=== PATIENT | male | born 1955 | race Caucasian/White ===

== ENCOUNTER 2019-09-21 11:49 | Outpatient (RCR) | payer MEDICARE, MEDICAID, SELFPAY | END 2019-09-29 00:01 | LOC: LAB 11:49 | PROVIDERS: Family Provider Family Medicine; Visit Provider Internal Medicine Infectious Disease | DX: M86.8X7 Other osteomyelitis, ankle and foot (principal) | CPT/HCPCS: 80053 ×3; 85007; 85025 ×2; 85027 ==

== ENCOUNTER → 2019-10-08 09:15 | Outpatient (BNVA) | payer MEDICARE, MEDICAID, SELFPAY | PROVIDERS: Family Provider Family Medicine; PCP Family Medicine; Visit Provider Nurse Practitioner | DX: F33.2 Major depressive disorder, recurrent severe without psychotic features (principal); G31.84 Mild cognitive impairment of uncertain or unknown etiology | CPT/HCPCS: 99213 ==

== ENCOUNTER 2019-10-13 15:45 | Outpatient (CLI) | payer MEDICARE, MEDICAID, SELFPAY ==
[2019-10-13 16:21] LABS: Hematocrit 38.2 % (42.0-52.0); Hemoglobin 12.5 g/dL (11.7-16.6); Mean Corpuscular HGB Conc 32.7 g/dL (30.0-36.0); Mean Corpuscular Hemoglobin 34.4 pg (28.0-34.0); Mean Corpuscular Volume 105.2 fL (80-94); Mean Platelet Volume 10.9 fL (7.4-10.4); Platelet Count 189 10^3/cmm (130-400); Red Blood Count 3.63 10^6/uL (4.1-5.3); Red Cell Distribution Width 12.6 % (12.1-15.1); White Blood Count 6.7 10^3/uL (4.0-10.0)
[2019-10-13 16:43] LABS: Alanine Aminotransferase < 5 U/L (0-41); Albumin Level 4.2 g/dL (3.5-5.2); Alkaline Phosphatase 70 IU/L (40-130); Anion Gap 15.6 (5-19); Aspartate Amino Transferase 11 U/L (0-40); Blood Urea Nitrogen 16 mg/dL (8-23); Calcium 9.6 mg/Dl (8.8-10.2); Carbon Dioxide 30 mmol/L (22-29); Chloride 98 mmol/L (98-107); Globulin 2.1 g/dL (1.3-4.6); Glomerular Filtration Rate 55.4 mL/min (90-130); Glucose 101 mg/dL (74-106); Potassium 4.6 mmol/L (3.5-5.1); Sodium 139 mmol/L (136-145); Total Bilirubin 0.2 mg/dL (0.15-1.2); Total Protein 6.3 g/dL (6.6-8.7)
[2019-10-13 22:49] LABS: Absolute Eosinophils 0.1 10^3/cmm (0.0-0.7); Absolute Segmented Neutrophil 4.8 10/cmm (1.6-7.1); Eosinophils 2 %; Lymphocytes 20 %; Monocytes Absolute 0.3 10^3/cmm (0.1-0.6); Platelet Estimate Normal (Normal); Segmented Neutrophils 73 %; Total Cells Counted 100 (0-100)
== END 2019-10-13 15:46 | disposition home or self-care (01) ==
LOC: LAB 15:52
PROVIDERS: Family Provider Family Medicine; PCP Family Medicine; Visit Provider Internal Medicine Infectious Disease
DX: M86.9 Osteomyelitis, unspecified (principal)
CPT/HCPCS: 80053; 85007; 85027

== ENCOUNTER → 2019-12-08 15:53 | Outpatient (BNVA) | payer MEDICARE, MEDICAID, SELFPAY | PROVIDERS: Family Provider Family Medicine; PCP Family Medicine; Visit Provider Podiatrist Foot & Ankle Surgery | DX: M79.671 Pain in right foot (principal); M79.672 Pain in left foot; S93.335A Other dislocation of left foot, initial encounter; S92.242A Displaced fracture of medial cuneiform of left foot, initial encounter for closed fracture; X58.XXXA Exposure to other specified factors, initial encounter; Z89.421 Acquired absence of other right toe(s) | CPT/HCPCS: 73630 ==

== ENCOUNTER 2019-12-18 06:27 | Day surgery (SDC) | payer MEDICARE, MEDICAID, SELFPAY ==
[2019-12-17 13:06] VITALS: BMI 25.0
[2019-12-18 06:50] VITALS: BP 65/38; PULSE 63; RESP 18; TEMP 36.3; O2SAT 97
--- NOTE | 2019-12-18 06:57 | ECG_ITS ---
Measurements Intervals [place] Rate: 59 P: -11 SC: 181 QRS: 22 QRSD: 97 T: 36 QT: 387 QTc: 384 SINUS BRADYCARDIA Compared to ECG 06/26/2019 12:17:49 Sinus rhythm no longer present Incomplete right bundle-branch block no longer present Electronically Signed On 12-18-2019 8:45:52 CDT by Lluvia Florentino [email or web address]
[2019-12-18] MEDS: sodium chloride 0.9% 1,000 ML 30 ML IV (07:02)
[2019-12-18 07:23] LABS: Basophils % 0.5 %; Eosinophils # 0.5 10^3/uL (0.0-0.8); Eosinophils % 7.1 %; Hematocrit 40.1 % (42.0-52.0); Hemoglobin 13.1 g/dL (11.7-16.6); Lymphocytes # 1.9 10^3/uL (0.8-4.8); Lymphocytes % 24.5 %; Mean Corpuscular HGB Conc 32.7 g/dL (30.0-36.0); Mean Corpuscular Hemoglobin 33.7 pg (28.0-34.0); Mean Corpuscular Volume 103.1 fL (80-94); Mean Platelet Volume 11.2 fL (7.4-10.4); Monocytes # 0.7 10^3/uL (0.2-0.9); Monocytes % 9.5 %; Neutrophils # 4.4 10^3/uL (1.8-7.7); Neutrophils % 58.1 %; Nucleated Red Blood Cells % 0 %; Platelet Count 193 10^3/cmm (130-400); Red Blood Count 3.89 10^6/uL (4.1-5.3); Red Cell Distribution Width 12.9 % (12.1-15.1); White Blood Count 7.6 10^3/uL (4.0-10.0)
--- NOTE | 2019-12-18 07:39 | ANES.PREANE2 ---
Pre-Anesthetic Assessment Pre-Anesthetic Assessment: Height/Weight: Height 1.91 m Weight 90.718 kg Temp Pulse Resp BP Pulse Ox 97.3 F L 63 18 65/38 97 12/18/19 06:50 12/18/19 06:50 12/18/19 06:50 12/18/19 06:50 12/18/19 06:50 Preop Diagnosis: Osteomyelitis right fifth toe Proposed Procedure: Operation Date: 12/18/19 08:15 Proposed Procedures p right fifth toe Amputation Toe/s(Right) - Donal Olson DPM Last intake: Intake Last Liquid Date 12/17/19 Last Liquid Time 20:00 Social: Social History: Tobacco Packs per day: 1 Pack years: 40 Comment: quit 2 weeks Exam: Pre-Anes Outpt Exam: alert and oriented x 3 Additional Exam Findings (including area of procedure): date 12/18/[address] [facility] Airway: Submandibular: WNL Cervical ROM: WNL MP: 1 CV/HEM: CV/HEM: HTN Comments: rx'd x15y stress test negative Anesthetic Plan: ASA status: 3 Anesthesia: MAC Meds/Allergies Current Medications: Current Medications Generic Name Dose Route Start Last Admin Trade Name Freq PRN Reason Stop Dose Admin Sodium Chloride 1,000 mls @ 30 ml s/hr 12/18/19 06:45 12/18/19 07:02 Sodium Chloride 0.9% IV 12/19/19 06:44 30 mls/hr .Q24H BETTINA Administration PFSH Anesthesia PFSH: Social History Smoking and tobacco status: former smoker Alcohol intake: former Year of sobriety/quit date alcohol: 2011 Data Anesthesia CBC & Chem 7: 12/18/19 07:11 Other Labs: Laboratory Results - last 48 hr 12/18/19 07:11 WBC 7.6 RBC 3.89 L Hgb 13.1 Hct 40.1 L MCV 103.1 H MCH 33.7 MCHC 32.7 RDW 12.9 Plt Count 193 MPV 11.2 H Neut % (Auto) 58.1 Lymph % (Auto) 24.5 [place] % (Auto) 9.5 Eos % (Auto) 7.1 Baso % (Auto) 0.5 Neut # (Auto) 4.4 Lymph # (Auto) 1.9 [place] # (Auto) 0.7 Eos # (Auto) 0.5 Baso # (Auto) 0.0 Nucleated RBC % (auto) 0 Nucleated RBCs # 0.0 Cardiac Studies: No Data to Display
[2019-12-18 07:47] LABS: Anion Gap 13.2 (5-19); Blood Urea Nitrogen 36 mg/dL (8-23); Calcium 8.9 mg/dL (8.5-10.5); Carbon Dioxide 27 mmol/L (22-29); Chloride 100 mmol/L (98-107); Glomerular Filtration Rate 24.9 mL/min (90-130); Glucose 96 mg/dL (65-115); Osmolality Calculated 275 mOsm/kg (285-295); Potassium 6.2 mmol/L (3.5-5.1); Sodium 134 mmol/L (136-145)
--- NOTE | 2019-12-18 09:31 | SUR.PREOP ---
/ wanted to admit patient to floor for observation for bp and labwork results. Pt refused admission to floor. Pt d/c home per . Patient has an appointment to see PCP on Saturday at 945am.
--- NOTE | 2019-12-18 11:17 | W.PM.OPSUD ---
Surgery/Procedure H&P Update DATE OF PROCEDURE: December 18, 2019 DATE H&P PERFORMED: 12/17/19 H&P UPDATE INFORMATION: I have reviewed H&P completed within last 30 days, I have examined patient prior to procedure and No changes to prior documentation (Met with patient preoperatively he appeared dehydrated and had complaints of dizziness. He was hypotensive, hyperkalemia and elevated creatinine. Recommended admission to the hospital for stabilization and work-up and proceeding with fifth toe surgery once he was stabilized. Patient adamantly refused hospitalization. Multiple attempts at explaining to the patient the importance of being admitted to the hospital, he adamantly refused admission states he wants to go home AGAINST MEDICAL ADVICE. Contacted patient's primary care office, scheduled a follow-up appointment this Saturday at 9:45 AM 12/21/2019 patient states that he will keep his follow-up appointment with primary care.) PREOP DIAGNOSIS: Osteomyelitis right fifth toe PLANNED PROCEDURE: Operation Date: 12/18/19 08:15 Proposed Procedures p right fifth toe Amputation Toe/s(Right) - Donal Olson DPM
--- NOTE | 2019-12-18 11:22 | PM.PN ---
Subjective Subjective: Interval history: Patient seen in preoperative holding, he is accompanied by his sister. Has a full-thickness wound to the right fifth toe with exposed bone. At this time the wound is clinically stable without lisa purulence and no periwound erythema, no proximal lymphangitic streaking. He is scheduled today for outpatient debridement with possible fixation versus right fifth toe amputation secondary to osteomyelitis. Vitals/I&O/Wt Last Vital Signs Temp 97.3 F L 12/18/19 06:50 Pulse 63 12/18/19 06:50 Resp 18 12/18/19 06:50 BP 65/38 12/18/19 06:50 Pulse Ox 97 12/18/19 06:50 12/17/19 12/18/19 12/18/19 22:59 06:59 14:59 Intake Total 400 / 400 Balance 400 / 400 Weight last 48 hrs Weight 200 lb Physical Exam Const: COMMON NORMALS: no apparent distress, oriented x3 and alert HENMT: MOUTH: moist mucous membranes not abnormal Chest: COMMONS NORMALS: inspection of chest normal and palpation of chest normal Resp: COMMON NORMALS: normal respiratory effort, no use of accessory muscles and clear to auscultation bilaterally EFFORT & INSPECTION: Yes able to speak in complete sentences AUSCULTATION: clear to auscultation bilaterally Cardio: COMMON NORMALS: regular rate, regular rhythm, S1 normal heart sound and S2 normal heart sound RATE: regular rate RHYTHM: regular rhythm HEART SOUNDS: S1 normal and S2 normal Extremity: OTHER: Full-thickness wound to the right fifth toe with the head of the proximal phalanx protruding through the wound base, no periwound erythema, no lisa purulence, no warmth, no proximal lymphangitic streaking. Left foot has Lisfranc disruption with gross deformity on the right foot the forefoot, he does have a stable wound at the medial aspect of the left foot this is being managed by wound care. Neuro: COMMON NORMALS: oriented x3 SENSORIUM/ORIENTATION: Yes alert Data : 12/18/19 07:11 12/18/19 07:24 A&P Assessment and plan (1) Non-pressure chronic ulcer of other part of right foot with necrosis of bone: Status: Acute Code(s): L97.514 - Non-pressure chronic ulcer of other part of right foot with necrosis of bone (2) Neuropathy, alcoholic: Status: Acute Code(s): G62.1 - Alcoholic polyneuropathy (3) Toe osteomyelitis, right: Status: Acute Code(s): M86.9 - Osteomyelitis, unspecified (4) Lisfranc's dislocation: Status: Acute Qualifiers: Encounter type: subsequent encounter Laterality: left Qualified Code(s): S93.325D - Dislocation of tarsometatarsal joint of left foot, subsequent encounter Code(s): S93.326A - Dislocation of tarsometatarsal joint of unspecified foot, initial encounter (5) Peripheral vascular disease: Status: Acute Code(s): I73.9 - Peripheral vascular disease, unspecified Patient was seen in preoperative holding, he does endorse dizziness. Patient states that he has not been drinking enough water and does feel dehydrated with a dry mouth. He is hypotensive with a blood pressure of 65/38. Denied any palpitations, chest pain or difficulty breathing. Hyperkalemic with potassium 6.2, elevated creatinine at 2.6. Patient is afebrile. Discussed laboratory and clinical findings with anesthesia. At this time his right fifth toe wound with exposed bone is clinically stable. Surgery was canceled for this morning and patient was recommended for admission to the hospital for work-up and medical maximization for surgery. Surgery would include arthroplasty of right fifth toe with fixation versus amputation of right fifth toe secondary to osteomyelitis. Patient adamantly refused admission to the hospital. I explained to him that this could be detrimental to his health he could develop arrhythmias, renal impairment and further destabilize. He is adamant that he will not be admitted to the hospital and wishes to go home. Once again told him this could become life threatening should he delay care and he continued to refuse. Arrange follow-up with his primary care December 21, 2019 9:45 AM states that he will attend that appointment. Attestations Medical Necessity Statement*: Preoperative evaluation Coding Level of Care Code Acute Inspector Insulation for angelique Fwd Diagnoses Non-pressure chronic ulcer of other part of right foot with necrosis of bone L97.514 Neuropathy, alcoholic G62.1 Toe osteomyelitis, right M86.9 Lisfranc's dislocation S93.325D Encounter type: subsequent encounter Laterality: left Peripheral vascular disease I73.9
== END 2019-12-18 08:40 | disposition home or self-care (01) ==
PROVIDERS: Anesthesiology; Family Provider Family Medicine; PCP Family Medicine; Visit Provider Podiatrist Foot & Ankle Surgery
DX: Z53.8 Procedure and treatment not carried out for other reasons (principal); L97.514 Non-pressure chronic ulcer of other part of right foot with necrosis of bone; G62.1 Alcoholic polyneuropathy; M86.9 Osteomyelitis, unspecified; S93.325D Dislocation of tarsometatarsal joint of left foot, subsequent encounter; X58.XXXA Exposure to other specified factors, initial encounter; I73.9 Peripheral vascular disease, unspecified; F17.210 Nicotine dependence, cigarettes, uncomplicated; I10 Essential (primary) hypertension
CPT/HCPCS: 12345; 80048; 85025; 93005; 93010; J7030

== ENCOUNTER → 2019-12-21 10:18 | Outpatient (BNVA) | payer MEDICARE, MEDICAID, SELFPAY | PROVIDERS: Family Provider Family Medicine; PCP Family Medicine; Visit Provider Family Medicine | DX: E87.5 Hyperkalemia (principal) | CPT/HCPCS: 80048 ==

== ENCOUNTER 2019-12-24 14:21 | Outpatient (RCR) | payer MEDICARE, MEDICAID, SELFPAY | END 2019-12-29 23:59 | disposition home or self-care (01) | LOC: WOUND 14:21 | PROVIDERS: Family Provider Family Medicine; PCP Family Medicine; Visit Provider Nurse Practitioner Family | DX: I96 Gangrene, not elsewhere classified (principal); L97.522 Non-pressure chronic ulcer of other part of left foot with fat layer exposed; L97.512 Non-pressure chronic ulcer of other part of right foot with fat layer exposed | CPT/HCPCS: 11042; 87070; 87077; 87176; 87186; 87205; 99213; G0463 ==

== ENCOUNTER 2020-01-08 11:38 | Outpatient (RCR) | payer MEDICARE, MEDICAID, SELFPAY ==
[2020-01-08 12:28] LABS: Anion Gap 14.5 (5-19); Blood Urea Nitrogen 16 mg/dL (8-23); Calcium 9.7 mg/dL (8.5-10.5); Carbon Dioxide 29 mmol/L (22-29); Chloride 101 mmol/L (98-107); Glucose 70 mg/dL (65-115); Osmolality Calculated 285 mOsm/kg (285-295); Potassium 4.5 mmol/L (3.5-5.1); Sodium 140 mmol/L (136-145)
== END 2020-01-28 23:59 | disposition home or self-care (01) ==
LOC: LAB 11:38
PROVIDERS: Family Provider Family Medicine; PCP Family Medicine; Visit Provider Family Medicine
DX: L97.512 Non-pressure chronic ulcer of other part of right foot with fat layer exposed (principal); L97.422 Non-pressure chronic ulcer of left heel and midfoot with fat layer exposed; F17.210 Nicotine dependence, cigarettes, uncomplicated; I10 Essential (primary) hypertension; G62.9 Polyneuropathy, unspecified; I73.9 Peripheral vascular disease, unspecified
CPT/HCPCS: 11042; 80048

== ENCOUNTER 2020-01-28 09:44 | Outpatient (RCR) | payer MEDICARE, MEDICAID, SELFPAY | END 2020-01-28 23:59 | disposition home or self-care (01) | LOC: WOUND 09:44 | PROVIDERS: Family Provider Family Medicine; PCP Family Medicine; Visit Provider Nurse Practitioner Family | DX: I96 Gangrene, not elsewhere classified (principal); L97.522 Non-pressure chronic ulcer of other part of left foot with fat layer exposed; L97.512 Non-pressure chronic ulcer of other part of right foot with fat layer exposed | CPT/HCPCS: 99213; 99214; 99215; G0463 ==

== ENCOUNTER → 2020-02-01 11:51 | Outpatient (BNVA) | payer MEDICARE, MEDICAID, SELFPAY | PROVIDERS: Family Provider Family Medicine; PCP Family Medicine; Visit Provider Podiatrist Foot & Ankle Surgery | DX: M79.672 Pain in left foot (principal); S92.302A Fracture of unspecified metatarsal bone(s), left foot, initial encounter for closed fracture; X58.XXXA Exposure to other specified factors, initial encounter | CPT/HCPCS: 73630 ==

== ENCOUNTER 2020-02-25 08:27 | Inpatient (IN) | payer MEDICARE, MEDICAID, SELFPAY ==
--- NOTE | 2020-02-23 12:35 | ANES.PREANE2 ---
Pre-Anesthetic Assessment Pre-Anesthetic Assessment: Height/Weight: Height 1.91 m Weight 90.718 kg Preop Diagnosis: left foot chronic Lisfranc fracture dislocation Proposed Procedure: Operation Date: 02/25/20 08:00 Proposed Procedures p Below Knee Amputation 33716 M79.673(Left) - Moi Stevens DO Social: Social History: Alcohol (quit 2011) and Tobacco (quit ) Exam: Pre-Anes Outpt Exam: alert, oriented x 3, clear to auscultation bilaterally and regular rate & rhythm Airway: Submandibular: WNL Cervical ROM: WNL MP: 2 Dentition: False (upper) History/ROS: No significant history except as noted Pulmonary: Pulmonary: None reported CV/HEM: CV/HEM: HTN : : None reported Hepatic: Hepatic: None reported GI: GI: GERD Metabolic: Metabolic: None reported Musc/skel: Musc/skel: OA/DJD Neuropsych: Neuropsych: Anxiety, Depression and Neuropathy Anesthetic Plan: ASA status: 4 Anesthesia: Anesthesia Evaluation and General Risk of > 500 ml blood loss (7ml/kg in children): No PFSH Anesthesia PFSH: Medical History Alcohol abuse, in remission Alcohol dependence, in remission Essential (primary) hypertension GERD (gastroesophageal reflux disease) Major depressive disorder, recurrent severe without psychotic features Mild cognitive impairment, so stated Peripheral vascular disease Surgical History History of foot surgery Family History Other Cancer Social History Smoking and tobacco status: former smoker Alcohol intake: former Year of sobriety/quit date alcohol: 2011 Data Anesthesia Cardiac Studies: No Data to Display
[2020-02-23 12:38] LABS: Basophils % 0.3 %; Eosinophils # 0.8 10^3/uL (0.0-0.8); Eosinophils % 7.2 %; Hematocrit 43.3 % (42.0-52.0); Hemoglobin 14.3 g/dL (11.7-16.6); Lymphocytes # 2.5 10^3/uL (0.8-4.8); Lymphocytes % 22.3 %; Mean Corpuscular Hemoglobin 34.2 pg (28.0-34.0); Mean Corpuscular Volume 103.6 fL (80-94); Mean Platelet Volume 10.9 fL (7.4-10.4); Monocytes # 0.8 10^3/uL (0.2-0.9); Monocytes % 6.9 %; Neutrophils # 7.1 10^3/uL (1.8-7.7); Neutrophils % 62.9 %; Nucleated Red Blood Cells % 0 %; Platelet Count 220 10^3/cmm (130-400); Red Blood Count 4.18 10^6/uL (4.1-5.3); Red Cell Distribution Width 13.3 % (12.1-15.1); White Blood Count 11.2 10^3/uL (4.0-10.0)
[2020-02-23 12:52] LABS: Alanine Aminotransferase 7 U/L (0-41); Albumin Level 4.5 g/dL (3.5-5.2); Alkaline Phosphatase 82 IU/L (40-130); Anion Gap 13.5 (5-19); Aspartate Amino Transferase 13 U/L (0-40); Blood Urea Nitrogen 21 mg/dL (8-23); Calcium 9.8 mg/dL (8.5-10.5); Carbon Dioxide 31 mmol/L (22-29); Chloride 97 mmol/L (98-107); Globulin 2.7 g/dL (1.3-4.6); Glomerular Filtration Rate 60.8 mL/min (90-130); Glucose 103 mg/dL (65-115); Osmolality Calculated 281 mOsm/kg (285-295); Potassium 4.5 mmol/L (3.5-5.1); Sodium 137 mmol/L (136-145); Total Bilirubin 0.2 mg/dL (0.15-1.2); Total Protein 7.2 g/dL (6.6-8.7)
[2020-02-25] VITALS (21 sets, daily range): BP systolic 92–128; BP diastolic 53–85; PULSE 60–81; RESP 14–20; TEMP 36.2–37.1; O2SAT 87–100
--- NOTE | 2020-02-25 08:21 | ECG_ITS ---
Measurements Intervals [place] Rate: 66 P: 41 IA: 180 QRS: 22 QRSD: 98 T: 50 QT: 399 QTc: 418 SINUS RHYTHM POSSIBLE RIGHT VENTRICULAR CONDUCTION DELAY [RSR (QR) IN V1/V2] Compared to ECG 12/18/2019 07:15:35 Sinus bradycardia no longer present Electronically Signed On 02-25-2020 11:50:27 CDT by Patrice Stone M.D. [email or web address]
[2020-02-25] MEDS: sodium chloride 0.9% 1,000 ML 30 ML IV (09:07)
--- NOTE | 2020-02-25 09:25 | W.PM.OPSUD ---
Surgery/Procedure H&P Update DATE OF PROCEDURE: February 25, 2020 DATE H&P PERFORMED: 02/10/20 H&P UPDATE INFORMATION: I have reviewed H&P completed within last 30 days, I have examined patient prior to procedure, No changes to prior documentation and H&P is in [facility] EMR on date indicated PREOP DIAGNOSIS: left foot chronic Lisfranc fracture dislocation PRIMARY INDICATION FOR PROCEDURE: as above. Patient has been offered reconstruction of his chronic Lisfranc fracture dislocation but after hearing the potential risk for persistent pain long episode of being nonweightbearing he elected to consider a below-knee amputation. PLANNED PROCEDURE: Operation Date: 02/25/20 09:55 Proposed Procedures p Below Knee Amputation [id number] M79.673(Left) - Moi Stevens DO
--- NOTE | 2020-02-25 09:28 | PM.OP ---
Operative Report Date of procedure: February 25, 2020 Pre-op Diagnosis: left foot chronic Lisfranc fracture dislocation Post-op diagnosis: same Procedure Done: Left below-knee amputation Pathology: Left leg sent to pathology Surgeon: Moi Stevens Anesthesia: General and Nerve Block (adductor and saphenous nerve blocks pre-op) Estimated blood loss (mL): 5 Tourniquet time (min): 60 (at 300 mm Hg) Complications: No apparent complications Findings: No evidence of infection at level of amutation. Tissue healthy in appearance. Condition: stable Disposition: PACU Brief History: 64 year old white male With chronic Lisfranc fracture dislocation of his left foot. Is been seen by foot and ankle reconstruction surgeon's and was told that he may face of persistent pain despite successful surgery be nonweightbearing for a protracted period of time and because of peripheral vascular disease he could face wound healing complications that could lead to below-knee amputation. Foot and ankle reconstruction experts also said he might be a candidate for below-knee amputation. Of note with the patient orthopedic consultation and discussed the treatment options with him. He was interested in below-knee amputation with fitting for a prosthesis selected get on with his life. Risks of surgery include aren't limited to potential wound healing complications. Possible need for revision of his stump should have any difficulties with healing. Medical risks include aren't limited to infection nerve/blood vessel/tendon injury, blood clots, heart attack, stroke risk up to including . All questions answered patient we will proceed with surgery. Procedure: 1.5 g Zinacef Patient identified. Surgical site signed. Surgical permit signed. Patient received 1.5 g of Zinacef for surgical prophylaxis. Patient is taken the operating room. Patient received nerve blocks by anesthesia for post-operative pain control. Patient is placed supine on the OR table. He was placed under general anesthesia. Tourniquet placed but the upper aspect of the operative left. Operative limb was then sterilely prepped and draped in the usual fashion. Timeout was performed. Patient reveived 1 g of TXA for added hemostasis. Operative limb was exsanguinated with elevation and the tourniquet inflated 300 mmHg pressure. Skin incisions were planned and marked out using a marking pen. Goal was to create a long posterior flap which will be brought anterior. A #10 blade was then used to make full thickness skin cuts. The tibial and fibular shafts were exposed and then cut using oscillating saw. The anterior aspect of the tibia was beveled using the oscillating saw and left smooth. With a second knife we completed our release of the soft tissues and the leg was then passed off of the field. The wound was now irrigated with Betadine-containing saline solution and antibiotic containing saline solution. Neurovascular bundles were identified. Small vessels coagulated with electrocautery. Larger vessels identified and tied off using 0 silk ties. The posterior tibial nerve was identified, tractioned distally and cut with a fresh knife and allowed to retract proximally. Branches of the peroneal nerve were similarly treated. Small areas of bleeding were treated with electrocautery. The posterior flap was debulked of muscle tissue to facilitate closure. The posterior fascial layer was closed to the anterior fascia using interrupted sutures of 0 and 2-0 Monocryl. Subcutaneous layer was closed with interrupted sutures of 2-0 Monocryl. Skin was reapproximated with a combination of nikita and 3-0 nylon. Triple antibiotic ointment was applied to the staple line followed by sterile dressings. Tourniquet was deflated. An Alban wrap was then applied. A knee immobilizer was applied to prevent the development of a flexion contracture. The patient was aroused from anesthesia. The patient was taken recovery room. Patient tolerated procedure well. All counts are correct.
[2020-02-25] MEDS: cefUROXime 1,500 MG in sodium chloride 0.9% (plus) 50 ML 100 MG IV (09:39)
[2020-02-25] MEDS: midazolam 1 mg/mL INJ 5 ML 5 MG IVP (09:40)
[2020-02-25] MEDS: fentaNYL 50 mcg/mL INJ 2mL 100 MCG IVP (09:41)
--- NOTE | 2020-02-25 10:14 | P.ANES_ITS ---
Anesthesia Procedures Procedure/Date: 02/25/20 Nerve Block ^: Nerve Block 1: Main Anesthesia: general anesthesia Time Out Performed: Yes Consent: requested by attending/covering physician, risks and benefits reviewed and patient agrees to proceed Nerve block location: adductor canal (left) and popliteal (left) Anesthesia monitors applied: pulse oximetry, EKG, BP cuff and oxygen Nerve block position: supine (for the AC then RLD for Pop) Anesthetic Used: ropivicaine 0.5% (20 ml for each blk total 40ml) and with d ecadron (8mg) Amount of anesthesia used (mL): 40 Ultrasound used to: recognize landmarks Nerve Stimulator Used?: Yes Interscalene/Femoral BLK: 4 stimuplex 21 g needle used for position and inplane approach, visualize local anesthetic spread and no vascular puncture identified Injection: neg aspiration of heme Patient Tolerated Procedure: well and no complications Complications: none
[2020-02-25] MEDS: neomycin-poly-bacitracin oint 28 gm 1 APPLIC TOPICAL (10:45)
[2020-02-25] MEDS: HYDROmorphone 1 mg/mL INJ 1 mL IVP ×2 (12:10→15:29)
[2020-02-25] MEDS: oxyCODONE 5 mg IR Tab/Cap PO ×2 (12:25→21:29)
[2020-02-25] MEDS: ketorolac 30 mg/mL INJ 15 MG IVP (12:46)
[2020-02-25] MEDS: acetaminophen 500 mg Tablet 1000 MG PO ×2 (12:46→21:28)
--- NOTE | 2020-02-25 12:52 | SUR.PHASEII ---
brought pt's black bag with belongings to room 269 and nurse at bedside
[2020-02-25] MEDS: calcium carb-vit d 600mg/400unit 1 Tablet 1 EACH PO (18:44)
[2020-02-25] MEDS: gabapentin 300 mg Capsule 600 MG PO (18:44)
[2020-02-25] MEDS: sennosides-docusate Tablet 2 TAB PO (18:44)
[2020-02-25] MEDS: metoprolol tartrate 50 mg Tablet PO (18:45)
[2020-02-25] MEDS: iron polysaccharide complex 150 mg Capsule PO (18:45)
[2020-02-25] MEDS: venlafaxine ER (24HR) 75 mg Capsule 225 MG PO (21:28)
[2020-02-26] VITALS (13 sets, daily range): BP systolic 101–130; BP diastolic 60–79; PULSE 58–70; RESP 16–20; TEMP 36.7–36.8; O2SAT 93–97
[2020-02-26] MEDS: sodium chloride 0.9% 1,000 ML 80 ML IV ×2 (01:32→15:22)
[2020-02-26] MEDS: enoxaparin 40 mg/0.4 mL Syringe SUBCUT ×2 (01:33→23:49)
[2020-02-26] MEDS: oxyCODONE 5 mg IR Tab/Cap PO ×6 (01:33→23:48)
--- NOTE | 2020-02-26 05:32 | PM.PN ---
Subjective Subjective: Interval history: 64-year-old white male postoperative day 1 status post left below-knee amputation to treat chronic fracture dislocation of left mid foot with deformity and previous history of infection. Prior to surgery patient was reluctant to be admitted to the hospital for postoperative pain control on at least an observation basis. After discussing his support network at home with his family. He is more agreeable to be admitted with discharge to either a assisted facility or inpatient rehabilitation to work on transfer training following his left below-knee amputation. Patient's status was changed yesterday we made it clear that he wanted be admitted longer than observation stay. Consult to case management to work the issue for transfer to a suitable facility when the patient is stable medically and meets criteria for discharge to a skilled facility. Vitals/I&O/Wt Last Vital Signs Temp 98.1 F 02/26/20 04:00 Pulse 61 02/26/20 04:00 Resp 16 02/26/20 04:00 BP 113/71 02/26/20 04:00 Pulse Ox 96 02/26/20 04:00 02/25/20 02/25/20 02/26/20 14:59 22:59 06:59 Intake Total 1260 / 1260 770 / 2029 575 / 2605 Output Total 5 / 5 0 / 5 500 / 505 Balance 1255 / 1255 770 / 2025 75 / 2100 Physical Exam Narrative: EXAM NARRATIVE: 64-year-old white male no acute distress. He is alert and cooperative. His left knee immobilizer is in place. His dressing is clean dry and intact. He has an SCD on the contralateral nonoperative limb and no calf tenderness. Data : 02/26/20 05:40 02/26/20 05:40 A&P Assessment and plan (1) History of left below knee amputation: Postoperative day 1 Antibiotic prophylaxis with cefuroxime VTE prophylaxis with SCD right lower extremity, mobilization and Lovenox product manager financial services for discharge planning to skilled facility at time of discharge Physical therapy and occupational therapy consults ordered Pain control Status: Acute Attestations Medical Necessity Statement*: patient requires continued inpatient level care following left below-knee amputation. Patient requires transfer to skilled facility at time of discharge for safety reasons and to work on ability to transfer. Patient has no significant support network that can help him at home. Home health initially does not look to be sufficient to provide him care postoperatively as he will be at risk for falling. Pain well controlled this am. Time Spent in Patient Care: less than 15 minutes (>than 50% of time spent in counselling and/or direct pt care on unit). Coding Level of Care Code Acute Supervisor Vendor Quality for [facility] Diagnoses History of left below knee amputation Z89.512
[2020-02-26] MEDS: acetaminophen 500 mg Tablet 1000 MG PO ×3 (05:34→20:07)
[2020-02-26 06:32] LABS: Basophils % 0.2 %; Eosinophils % 0.2 %; Hematocrit 39.9 % (42.0-52.0); Hemoglobin 12.8 g/dL (11.7-16.6); Lymphocytes # 1.2 10^3/uL (0.8-4.8); Lymphocytes % 6.7 %; Mean Corpuscular HGB Conc 32.1 g/dL (30.0-36.0); Mean Corpuscular Hemoglobin 33.3 pg (28.0-34.0); Mean Corpuscular Volume 103.9 fL (80-94); Monocytes # 1.1 10^3/uL (0.2-0.9); Monocytes % 6.3 %; Neutrophils # 15.7 10^3/uL (1.8-7.7); Neutrophils % 86.1 %; Nucleated Red Blood Cells % 0 %; Platelet Count 187 10^3/cmm (130-400); Red Blood Count 3.84 10^6/uL (4.1-5.3); Red Cell Distribution Width 13.2 % (12.1-15.1); White Blood Count 18.2 10^3/uL (4.0-10.0)
[2020-02-26 06:42] LABS: Anion Gap 14.6 (5-19); Blood Urea Nitrogen 18 mg/dL (8-23); Calcium 8.6 mg/dL (8.5-10.5); Carbon Dioxide 24 mmol/L (22-29); Chloride 102 mmol/L (98-107); Glucose 118 mg/dL (65-115); Osmolality Calculated 280 mOsm/kg (285-295); Potassium 4.6 mmol/L (3.5-5.1); Sodium 136 mmol/L (136-145)
[2020-02-26] MEDS: fluticasone nasal spray 16gm Btl 2 SPRAY INTRANASAL (08:58)
[2020-02-26] MEDS: gabapentin 300 mg Capsule 600 MG PO ×2 (08:59→17:32)
[2020-02-26] MEDS: amlodipine 10 mg Tablet PO (08:59)
[2020-02-26] MEDS: iron polysaccharide complex 150 mg Capsule PO ×2 (08:59→17:32)
[2020-02-26] MEDS: multivitamin therapeutic Tablet 1 TAB PO (08:59)
[2020-02-26] MEDS: calcium carb-vit d 600mg/400unit 1 Tablet 1 EACH PO ×2 (08:59→17:32)
[2020-02-26] MEDS: metoprolol tartrate 50 mg Tablet PO ×2 (09:00→17:32)
[2020-02-26] MEDS: lisinopril 10 mg Tablet PO (09:00)
[2020-02-26] MEDS: sennosides-docusate Tablet 2 TAB PO ×2 (09:00→17:32)
--- NOTE | 2020-02-26 10:29 | PC.CHAP ---
Pastoral Care Encounter/Spiritual Assessment Type of Contact [] Declined lab analyst visit [] Patient/Family/Request visit [] Outpatient visit [] Follow-up visit [] Physician referral [] Code/Alert [x] Routine visit [] Staff referral [] Actively dying [] Patient sleeping [] Family support [] [] Out of room [] Palliative care [] [] Receiving care in room [] Pre-surgical visit [] Trauma [] Long length of stay [] ICU visit [] Other: Relational/Emotional Strength [] Patient feels connected with others/family/visitors/staff [] Distress [] Loneliness/isolation [] Abandonment Spirituality of Patient [] Person of Mulu [] Attends Samaritan of their Mulu [] Believes in Prayer [] Reads Bible or Jewish materials [] There are Spiritual issues to be addressed Budget Examiner Interventions [x] Prayer [] Active listening [] Non-anxious presence [] Spiritual/emotional support [] Crisis/trauma care [] Spiritual counseling [] Bereavement support [] Provided bereavement packet [] Provided Bible/devotional materials [] Provided toy/stuffed animal, coloring book to patient or family member [] Provided Communion [] Anointing/[place] [] Salvation [x] Completed spiritual assessment [] Other: Impact on Illness or Injury [] Angry [] Fearful [] Anxious [] Often cries [] Exhaustion [] Unable to work [] Unable to attend sikhism [] Unable to walk/stand [] Unable to read [] Unable to drive [] Unable to eat/drink [] Unable to sleep [] Unable to be with family [] Patient intubated [] Other: Summary Budget Examiner had to apologize- not noted that patient had leg removed. Patient experiencing pain, and there is no clarity as to cause of loss of limb Time spent with patient 10 min
[2020-02-26] MEDS: HYDROmorphone 1 mg/mL INJ 1 mL IVP ×2 (11:26→20:08)
[2020-02-26] MEDS: ketorolac 30 mg/mL INJ 15 MG IVP (13:31)
[2020-02-26] MEDS: venlafaxine ER (24HR) 75 mg Capsule 225 MG PO (20:08)
[2020-02-27] VITALS (14 sets, daily range): BP systolic 118–131; BP diastolic 67–76; PULSE 61–70; RESP 14–18; TEMP 36.6–37.2; O2SAT 92–96
[2020-02-27] MEDS: HYDROmorphone 1 mg/mL INJ 1 mL IVP ×3 (02:52→23:29)
[2020-02-27] MEDS: ketorolac 30 mg/mL INJ 15 MG IVP ×3 (02:52→20:40)
[2020-02-27] MEDS: oxyCODONE 5 mg IR Tab/Cap PO ×5 (05:08→21:19)
[2020-02-27] MEDS: sodium chloride 0.9% 1,000 ML 80 ML IV (05:09)
[2020-02-27] MEDS: acetaminophen 500 mg Tablet 1000 MG PO ×3 (05:09→20:40)
[2020-02-27] MEDS: fluticasone nasal spray 16gm Btl 2 SPRAY INTRANASAL (05:16)
[2020-02-27] MEDS: sennosides-docusate Tablet 2 TAB PO ×2 (07:28→17:08)
[2020-02-27] MEDS: multivitamin therapeutic Tablet 1 TAB PO (07:29)
[2020-02-27] MEDS: iron polysaccharide complex 150 mg Capsule PO ×2 (07:29→17:08)
[2020-02-27] MEDS: amlodipine 10 mg Tablet PO (07:29)
[2020-02-27] MEDS: gabapentin 300 mg Capsule 600 MG PO ×2 (07:29→17:08)
[2020-02-27] MEDS: lisinopril 10 mg Tablet PO (07:29)
[2020-02-27] MEDS: calcium carb-vit d 600mg/400unit 1 Tablet 1 EACH PO ×2 (07:29→17:08)
[2020-02-27] MEDS: metoprolol tartrate 50 mg Tablet PO ×2 (07:29→17:08)
--- NOTE | 2020-02-27 09:05 | PM.PN ---
Subjective Subjective: Interval history: 64-year-old white male postoperative day 2 status post left below-knee amputation for chronic left foot Lisfranc fracture dislocation with chronic plantar ulcer and underlying osteomyelitis. Pain being controlled with oral medications Vitals/I&O/Wt Last Vital Signs Temp 98.0 F 02/27/20 07:23 Pulse 62 02/27/20 07:23 Resp 18 02/27/20 07:23 BP 124/74 02/27/20 07:23 Pulse Ox 95 02/27/20 07:23 02/26/20 02/27/20 02/27/20 22:59 06:59 14:59 Intake Total 720 / 1960 1480 / 3440 360 / 360 Output Total 150 / 750 400 / 1150 350 / 350 Balance 570 / 1210 1080 / 2290 Physical Exam Narrative: EXAM NARRATIVE: 64-year-old white male in no distress. Vital signs stable, afebrile. He is alert and cooperative. Lungs are clear to auscultation. heart is regular rate rhythm. Abdomen is nontender. SCD on the contralateral leg. Contralateral leg calf is nontender. Dressing changed on the left lower extremity. Incision is intact. No evidence of active bleeding. Data : 02/26/20 05:40 02/26/20 05:40 A&P Assessment and plan (1) History of left below knee amputation: discharge planning in process to inpatient rehabilitation versus snf facility social security benefits interviewer consultation in place. Continue mobilization and therapy with both OT and physical therapy while here in the hospital Pain control. encourage transition to oral pain medication in anticipation of discharge VTE prophylaxis with Lovenox and SCDs patient follow-up in the office roughly 2 weeks' time from date of surgery for staple removal application of Steri-Strips and follow-up 2 weeks later for suture removal Status: Acute Attestations Medical Necessity Statement*: patient requires continued inpatient level care planning occurs for discharge to skilled facility Coding Level of Care Code Acute Latex Fashions Designer for [facility] Diagnoses History of left below knee amputation Z89.512
--- NOTE | 2020-02-27 18:06 | NUR.SHIFT ---
SHIFT SUMMARY PATIENT DID WELL WITH PT AND OT TODAY. PAIN STILL NOT CONTROLLED WITH JUST ORAL PAIN MEDICATION, BUT GETTING BETTER. PATIENT HAS ONLY REQUIRED ONE DOSE OF TORADOL AND ONE DOSE OF DILAUDID BETWEEN THE OXY. DRESSING IS STILL C/D/I. GOOD URINE OUTPUT. NO COMPLAINTS AT THIS TIME.
[2020-02-27] MEDS: venlafaxine ER (24HR) 75 mg Capsule 225 MG PO (20:40)
[2020-02-28] VITALS (9 sets, daily range): BP systolic 128–143; BP diastolic 69–76; PULSE 73–86; RESP 16–19; TEMP 36.7–37; O2SAT 91–98
[2020-02-28] MEDS: oxyCODONE 5 mg IR Tab/Cap PO ×4 (00:57→13:17)
[2020-02-28] MEDS: enoxaparin 40 mg/0.4 mL Syringe SUBCUT (01:01)
[2020-02-28] MEDS: acetaminophen 500 mg Tablet 1000 MG PO ×2 (05:30→13:17)
[2020-02-28 05:55] LABS: Basophils % 0.4 %; Eosinophils # 0.5 10^3/uL (0.0-0.8); Eosinophils % 4.8 %; Hematocrit 35.6 % (42.0-52.0); Hemoglobin 11.7 g/dL (11.7-16.6); Lymphocytes # 1.8 10^3/uL (0.8-4.8); Lymphocytes % 17.6 %; Mean Corpuscular HGB Conc 32.9 g/dL (30.0-36.0); Mean Corpuscular Hemoglobin 33.4 pg (28.0-34.0); Mean Corpuscular Volume 101.7 fL (80-94); Mean Platelet Volume 11.3 fL (7.4-10.4); Monocytes # 0.8 10^3/uL (0.2-0.9); Neutrophils % 68.9 %; Nucleated Red Blood Cells % 0 %; Platelet Count 173 10^3/cmm (130-400); Red Cell Distribution Width 13.6 % (12.1-15.1); White Blood Count 10.2 10^3/uL (4.0-10.0)
[2020-02-28] MEDS: iron polysaccharide complex 150 mg Capsule PO (08:00)
[2020-02-28] MEDS: amlodipine 10 mg Tablet PO (08:00)
[2020-02-28] MEDS: gabapentin 300 mg Capsule 600 MG PO (08:00)
[2020-02-28] MEDS: multivitamin therapeutic Tablet 1 TAB PO (08:00)
[2020-02-28] MEDS: fluticasone nasal spray 16gm Btl 2 SPRAY INTRANASAL (08:00)
[2020-02-28] MEDS: lisinopril 10 mg Tablet PO (08:00)
[2020-02-28] MEDS: sennosides-docusate Tablet 2 TAB PO (08:00)
[2020-02-28] MEDS: calcium carb-vit d 600mg/400unit 1 Tablet 1 EACH PO (08:00)
[2020-02-28] MEDS: metoprolol tartrate 50 mg Tablet PO (08:00)
[2020-02-28] MEDS: ketorolac 30 mg/mL INJ 15 MG IVP (08:01)
--- NOTE | 2020-02-28 10:00 | PM.DCS ---
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 The patient sought potential evaluation for reconstruction by foot and ankle providers. There is no guarantee that he be pain free of any might still require amputation. He was seen by me in consultation for him amputation. He was agreeable to proceed with amputation. He was admitted the following surgery on 02/25/2020. He underwent left below-knee amputation under general anesthetic. There no intraoperative or immediate postoperative complications. He tolerated surgery well. Following surgery we worked with physical therapy to work on gait and transfer training. 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 It was not felt that he would be safe to go home. For this reason arrangements were made to transfer the patient to a assisted facility for safety. This also is important as the patient had no significant support network at home. Time of discharge the patient's incision was intact there is evidence of infection. There is no active drainage. Pain was controlled with oral pain medication. He was afebrile. Discharge Summary: patient discharged to skilled facility on 02/28/2020 See discharge medications and discharge instructions below Physical Exam Narrative: EXAM NARRATIVE: 64-year-old white male not distress. He is alert and cooperative. Lungs are clear to auscultation heart is regular rate rhythm abdomen soft and nontender. His incision is intact with no drainage at the left below-knee amputation site. Skin is closed in a combination of nikita and sutures. Discharge Data Data Completed and Pending: Completed Studies During Hospitalization Category Date Time Status Pathology: Surgic al [PTH] Routine Pth 02/25/20 10:23 Completed Vitals: Last Vital Signs Temp 98.0 F 02/28/20 12:00 Pulse 73 02/28/20 12:00 Resp 16 02/28/20 14:25 BP 136/74 02/28/20 12:00 Pulse Ox 98 02/28/20 12:00 Discharge Plan Discharge Patient Disposition: Xfer SNF Condition: Stable Prescriptions: New oxycodone-acetaminophen 10-325 mg tablet 1 tab PO Q4H PRN (Reason: pain) Qty: 60 RF: 0 Continued gabapentin 300 mg capsule 600 mg PO BID Qty: 60 RF: 2 venlafaxine [Effexor XR] 75 mg capsule,extended release 24hr 225 mg PO .AT BED Qty: 90 RF: 2 zolpidem [Ambien] 10 mg tablet 10 mg PO .HS Qty: 30 RF: 2 fluticasone propionate [Flonase Allergy Relief] 50 mcg/actuation spray,suspension 2 spray INTRANASAL DAILY Qty: 16 RF: 1 metoprolol tartrate 50 mg tablet 50 mg PO BID RF: 0 amlodipine 10 mg tablet 10 mg PO DAILY Qty: 30 RF: 0 lisinopril 10 mg tablet 10 mg PO DAILY Qty: 30 RF: 0 Discontinued amoxicillin-pot clavulanate [Augmentin] 875-125 mg tablet 1 tab PO BID Qty: 14 RF: 0 oxycodone-acetaminophen [Percocet] 7.5-325 mg tablet 1 tab PO Q6H PRN (Reason: pain) 7 Days Qty: 28 RF: 0 No Action (DME) Crutches See Rx Instructions .Route .MEDSUPPLY Qty: 1 RF: 0 (DME) Wheel Chair See Rx Instructions .Route .MEDSUPPLY Qty: 1 RF: 0 Discharge Orders: Discharge Order (Routine); Ordered 02/28/20 Ordered By: Moi Stevens Referrals: [facility] [Outside] Moi Stevens DO [Physician] - 03/10/20 9:30 am Discharge Diet: Regular Discharge Activity: Increase activity as tolerated, Use walker/crutches as instructed and As per PT/OT instructions Patient Instructions: Oxycodone/Acetaminophen (By mouth), Enoxaparin (Injection), Below the Knee Amputation (DC) Activity Restrictions/Additional Instructions: Nonweightbearing left BKA stump site Patient to wear knee immobilizer left lower extremity 23 out of 24 hours a day. Patient may come out of knee immobilizer for dressing changes to be performed every other day and for physical therapy for active passive range of motion to prevent knee stiffness. Patient may do upper body ergometry and and upper body strengthening exercises exercises Sponge bathe only Out of bed to chair and bathroom privileges weightbearing as tolerated on his right foot. Dressing changes as follows Removal dressing Clean incision line with sterile saline apply triple antibiotic ointment, Telfa, 4 x 4's ABDs if needed otherwise Kerlex and fishnet elastic stocking. Discharge Date/Time: 02/28/20 14:26 Discharge Attestations Time Spent in Discharge Care*: less than 30 min Specific Discharge Activities: Specific discharge activities: discussing with patient case coordinator/social workers/dc planners and documenting/other paperwork Quality Metrics Clinical Quality Measures During this hospital stay, did patient experience: None Coding Level of Care Code Acute Cafeteria Aide for [facility] Diagnoses History of left below knee amputation Z89.512
--- NOTE | 2020-02-28 11:46 | DCPLANNER ---
Pg 2 of IM updated and reviewed with pt. No questions, copy provided.
== END 2020-02-28 14:26 | disposition skilled nursing facility (03) | DRG 475 ==
PROVIDERS: Admitting Provider Orthopaedic Surgery; PCP Family Medicine; Visit Provider Orthopaedic Surgery
PROC: 0Y6J0Z3 Detachment at Left Lower Leg, Low, Open Approach (ICD-10-PCS; CPT 27880; principal; 2020-02-25 09:55)
DX: S92.812A Other fracture of left foot, initial encounter for closed fracture (principal); F33.2 Major depressive disorder, recurrent severe without psychotic features; M86.8X6 Other osteomyelitis, lower leg; I10 Essential (primary) hypertension; X58.XXXA Exposure to other specified factors, initial encounter
CPT/HCPCS: 12345; 36415; 80048; 80053; 85025; 86850; 86900; 88307; 93005; 96372; 96374; 96375; 97110; 97116; 97161; 97165; 97530; 97535; 97760; J0131; J0330; J0697; J1100; J1170; J1580; J1650; J1885; J2001; J2250; J2405; J2704; J2795; J3010; J3490; J7030

== ENCOUNTER → 2020-03-21 11:34 | Outpatient (BNVA) | payer MEDICARE, MEDICAID, SELFPAY | PROVIDERS: PCP Family Medicine; Visit Provider Family Medicine | DX: S91.209A Unspecified open wound of unspecified toe(s) with damage to nail, initial encounter (principal); X58.XXXA Exposure to other specified factors, initial encounter | CPT/HCPCS: 84450; 87070 ==

== ENCOUNTER → 2020-04-15 07:53 | Outpatient (BNVA) | payer MEDICARE, MEDICAID, SELFPAY | PROVIDERS: PCP Family Medicine; Visit Provider Nurse Practitioner | DX: F33.2 Major depressive disorder, recurrent severe without psychotic features (principal); G31.84 Mild cognitive impairment of uncertain or unknown etiology | CPT/HCPCS: 99213 ==

== ENCOUNTER → 2020-06-20 11:38 | Outpatient (BNVA) | payer MEDICARE, MEDICAID, SELFPAY | PROVIDERS: PCP Family Medicine; Visit Provider Family Medicine | DX: Z13.6 Encounter for screening for cardiovascular disorders (principal); I10 Essential (primary) hypertension | CPT/HCPCS: 80053 ==

== ENCOUNTER → 2020-09-05 07:44 | Outpatient (BNVA) | payer MEDICARE, MEDICAID, SELFPAY | PROVIDERS: PCP Family Medicine; Visit Provider Nurse Practitioner | DX: F33.2 Major depressive disorder, recurrent severe without psychotic features (principal); G31.84 Mild cognitive impairment of uncertain or unknown etiology | CPT/HCPCS: 99213 ==

== ENCOUNTER 2020-10-17 14:26 | Emergency (ER) | payer MEDICARE, MEDICAID, SELFPAY ==
[2020-10-17 14:33] VITALS: BP 154/84; PULSE 76; RESP 18; TEMP 36.1; O2SAT 98; BMI 23.7
[2020-10-17 16:02] VITALS: BP 134/82; PULSE 66; RESP 14; O2SAT 98
--- NOTE | 2020-10-17 16:12 | ED_ITS ---
HPI - General Adult General: Chief complaint: Dental/Oral Stated complaint: poss infection, sores in mouth and rash on face Time Seen by Provider: 10/17/20 15:57 History of Present Illness: HPI narrative: Patient presents with sores on his face is very painful. Was seen by Dentist other day and medicine was called in for infection and he was told that he possibly had a sinus infection. Patient been sore for a few days and now is broke out the rash on the right side of his face extending to the ear and up and does have some drainage from those areas now. MD complaint: Painful rash to the face times a few days Onset (ago): day(s) Location: face Severity scale (1-10): 5 Quality: burning and aching Pain Consistency: constant Relieving factors: none Exacerbating factors: none Associated symptoms: Reports no associated symptoms and rash (Painful to the face right side only); Deny chest pain, dyspnea, headache(s), nausea or vomiting Treatments prior to arrival: other (Antibiotics) Review of Systems Const: Denies: fever(s), chills or body aches Eyes: Denies: change in vision or blurry vision ENMT: Denies: throat pain or nasal congestion Card: Denies: chest pain or dyspnea on exertion Resp: Denies: dyspnea, productive cough or non-productive cough GI: Denies: abdominal pain, nausea or vomiting : Denies: difficulty urinating Musc: Denies: extremity pain Skin/Breast: Reports: rash (Painful to the face right side only) Neuro: Denies: headache(s) Psych: Denies: anxiety or depression Dio/Lymph: Denies: easy bruising PFS ED PFSH: Medical History (Updated 10/17/20 @ 16:10 by MARY Lamar) Alcohol abuse, in remission Alcohol dependence, in remission Essential (primary) hypertension GERD (gastroesophageal reflux disease) History of left below knee amputation Major depressive disorder, recurrent severe without psychotic features Mild cognitive impairment, so stated Peripheral vascular disease Surgical History History of foot surgery Family History Other Cancer Social History Smoking and tobacco status: former smoker Alcohol intake: former Year of sobriety/quit date alcohol: 2011 Physical Exam Const: COMMON NORMALS: no acute distress, average body habitus and patient oriented x3 HENMT: COMMON NORMALS: normocephalic HEAD & SCALP: normal to inspection and normocephalic FACE & SINUS: normal facial exam Eye: COMMON NORMALS: conjunctivae normal GENERAL EYE: appearance normal, both eyes and all related structures CONJUNCTIVA: Yes conjunctivae normal Neck/C-Spine: COMMON NORMALS: no JVD Chest: COMMONS NORMALS: normal inspection of the chest Resp: COMMON NORMALS: normal respiratory effort Cardio: COMMON NORMALS: no JVD GI: COMMON NORMALS: Normal to inspection, nondistended, normoactive bowel sounds present Extremity: COMMON NORMALS: normal to inspection and full ROM Neuro: COMMON NORMALS: patient oriented x3 Skin: OTHER: Scattered vesicular clusters with yellow weeping from on the right side of face consistent with a shingles outbreak. Has pain to the right ear but no vesicles noted there Course Vital Signs: Vital signs: Vital Signs Temperature 96.9 F L 10/17/20 14:33 Pulse Rate 66 10/17/20 16:02 Respiratory Rate 14 10/17/20 16:02 Blood Pressure 134/82 10/17/20 16:02 Pulse Oximetry 98 10/17/20 16:02 Discharge Plan Discharge Patient Disposition: Home Clinical Impression: Shingles Qualifiers: Herpes zoster complications: disseminated zoster Qualified Code(s): B02.7 - Disseminated zoster Condition: Stable Prescriptions: New acyclovir 800 mg tablet 800 mg PO 5XD Qty: 35 RF: 0 No Action hydrochlorothiazide 25 mg tablet 25 mg PO QAM RF: 0 lisinopril 5 mg tablet 5 mg PO DAILY Qty: 30 RF: 0 gabapentin 300 mg capsule 600 mg PO BID Qty: 120 RF: 2 zolpidem [Ambien] 10 mg tablet 10 mg PO .HS Qty: 30 RF: 2 venlafaxine [Effexor XR] 75 mg capsule,extended release 24hr 225 mg PO .AT BED Qty: 90 RF: 2 (DME) Stump Labourers See Rx Instructions .Route .MEDSUPPLY Qty: 1 RF: 0 amoxicillin 500 mg capsule 500 mg PO TID 7 Days Qty: 21 RF: 0 fluticasone propionate [Flonase Allergy Relief] 50 mcg/actuation spray ,suspension 2 spray INTRANASAL DAILY Qty: 16 RF: 0 (DME) Wheel Chair See Rx Instructions .Route .MEDSUPPLY Qty: 1 RF: 0 metoprolol tartrate 50 mg tablet 50 mg PO BID Qty: 60 RF: 1 oxycodone-acetaminophen 10-325 mg tablet 1 tab PO Q6H PRN (Reason: pain) 7 Days Qty: 28 RF: 0 amlodipine 10 mg tablet 10 mg PO DAILY Qty: 14 RF: 0 Discharge Orders: Discharge ED (Routine); Ordered 10/17/20 Ordered By: Sharif Orozco Referrals: Maryellen Tony DO [Primary Care Provider] - Discharge Diet: Usual diet Discharge Activity: Increase activity as tolerated Patient Instructions: Herpes Zoster (ED) Activity Restrictions/Additional Instructions: Follow-up with medical provider as directed. Take medications as prescribed. Return to the ER or your medical provider if condition worsens. Please read and understand discharge instructions. If any questions ask please. Coding Level of Care Code ED Geological E Logger for [facility]
== END 2020-10-17 16:12 | disposition home or self-care (01) ==
PROVIDERS: Emergency Provider Nurse Practitioner Family; PCP Family Medicine
DX: B02.7 Disseminated zoster (principal); I10 Essential (primary) hypertension; Z89.512 Acquired absence of left leg below knee; Z87.891 Personal history of nicotine dependence
CPT/HCPCS: 12345; 99281

== ENCOUNTER → 2020-12-09 11:26 | Outpatient (BNVA) | payer MEDICARE, MEDICAID, SELFPAY | PROVIDERS: PCP Family Medicine; Visit Provider Family Medicine | DX: I10 Essential (primary) hypertension (principal); H60.91 Unspecified otitis externa, right ear; Z89.512 Acquired absence of left leg below knee | CPT/HCPCS: 80053; 80061; 82043; 85025 ==

== ENCOUNTER 2020-12-20 14:41 | Outpatient (RCR) | payer MEDICARE, MEDICAID, SELFPAY | END 2020-12-28 23:59 | disposition home or self-care (01) | LOC: SPT 14:41 | PROVIDERS: PCP Family Medicine; Referring Provider Family Medicine; Visit Provider Family Medicine | DX: F33.2 Major depressive disorder, recurrent severe without psychotic features (principal); G31.84 Mild cognitive impairment of uncertain or unknown etiology | CPT/HCPCS: 97110; 97161; 99214 ==

== ENCOUNTER 2020-12-29 06:00 | Outpatient (RCR) | payer MEDICARE, MEDICAID, SELFPAY | END 2021-01-27 23:59 | disposition home or self-care (01) | LOC: SPT 06:00 | PROVIDERS: PCP Family Medicine; Referring Provider Family Medicine; Visit Provider Family Medicine | DX: F33.2 Major depressive disorder, recurrent severe without psychotic features (principal); G31.84 Mild cognitive impairment of uncertain or unknown etiology; Z89.512 Acquired absence of left leg below knee | CPT/HCPCS: 97110; 97116 ==

== ENCOUNTER 2021-01-28 06:00 | Outpatient (RCR) | payer MEDICARE, MEDICAID, SELFPAY | END 2021-02-27 23:59 | disposition home or self-care (01) | LOC: SPT 06:00 | PROVIDERS: PCP Family Medicine; Referring Provider Family Medicine; Visit Provider Family Medicine | DX: F33.2 Major depressive disorder, recurrent severe without psychotic features (principal); G31.84 Mild cognitive impairment of uncertain or unknown etiology; Z89.512 Acquired absence of left leg below knee | CPT/HCPCS: 97110 ==

== ENCOUNTER → 2021-03-17 07:29 | Outpatient (BNVA) | payer MEDICARE, MEDICAID, SELFPAY | PROVIDERS: PCP Family Medicine; Visit Provider Nurse Practitioner | DX: F33.2 Major depressive disorder, recurrent severe without psychotic features (principal); G31.84 Mild cognitive impairment of uncertain or unknown etiology | CPT/HCPCS: 99214 ==

== ENCOUNTER → 2021-03-21 11:54 | Outpatient (BNVA) | payer MEDICARE, MEDICAID, SELFPAY | PROVIDERS: PCP Family Medicine; Visit Provider Family Medicine | DX: E78.5 Hyperlipidemia, unspecified (principal); Z89.512 Acquired absence of left leg below knee | CPT/HCPCS: 80053; 80061 ==

== ENCOUNTER 2021-04-05 06:00 | Outpatient (RCR) | payer MEDICARE, MEDICAID, SELFPAY | END 2021-04-29 23:59 | disposition home or self-care (01) | LOC: SPT 06:00 | PROVIDERS: PCP Family Medicine; Referring Provider Family Medicine; Visit Provider Family Medicine | DX: Z47.1 Aftercare following joint replacement surgery (principal); Z89.512 Acquired absence of left leg below knee | CPT/HCPCS: 97110; 97112; 97116; 97161 ==

== ENCOUNTER → 2021-04-27 11:57 | Outpatient (BNVA) | payer MEDICARE, MEDICAID, SELFPAY | PROVIDERS: PCP Family Medicine; Visit Provider Nurse Practitioner | DX: R60.9 Edema, unspecified (principal); L03.90 Cellulitis, unspecified; I10 Essential (primary) hypertension | CPT/HCPCS: 83880; 85025 ==

== ENCOUNTER 2021-04-30 06:00 | Outpatient (RCR) | payer MEDICARE, MEDICAID, SELFPAY | END 2021-05-30 23:59 | disposition home or self-care (01) | LOC: SPT 06:00 | PROVIDERS: PCP Family Medicine; Referring Provider Family Medicine; Visit Provider Family Medicine | DX: Z47.1 Aftercare following joint replacement surgery (principal); Z89.512 Acquired absence of left leg below knee | CPT/HCPCS: 97110; 97112 ==

== ENCOUNTER → 2021-06-09 09:44 | Outpatient (BNVA) | payer MEDICARE, MEDICAID, SELFPAY | PROVIDERS: PCP Family Medicine; Visit Provider Nurse Practitioner | DX: F33.2 Major depressive disorder, recurrent severe without psychotic features (principal); G31.84 Mild cognitive impairment of uncertain or unknown etiology | CPT/HCPCS: 99214 ==

== ENCOUNTER 2021-06-15 14:09 | Outpatient (CLI) | payer MEDICARE, MEDICAID, SELFPAY | END 2021-06-15 14:10 | disposition home or self-care (01) | LOC: WOUND 14:10 | PROVIDERS: PCP Family Medicine; Visit Provider Emergency Medicine | DX: Z09 Encounter for follow-up examination after completed treatment for conditions other than malignant neoplasm (principal); F17.210 Nicotine dependence, cigarettes, uncomplicated | CPT/HCPCS: 99212 ==

== ENCOUNTER 2021-06-16 07:08 | Outpatient (CLI) | payer MEDICARE, MEDICAID, SELFPAY ==
--- NOTE | 2021-06-16 07:16 | USCV_ITS ---
Joseph Cho Age: 65 Gender: M : 1955 Exam Date: 06/16/2021 07:22 Ordering Phys: Luz Marina Billings DO Technologist: [place]am [place] [facility] [place]ication: rt leg swelling and redness HISTORY: Lower extremity swelling. PROCEDURES: Venous duplex imaging was performed in only the right lower extremity. The following venous structures were evaluated: common femoral vein, profunda vein, proximal portion of the greater saphenous vein, superficial femoral vein, and the popliteal vein. In addition, the posterior tibial and peroneal trunk were evaluated. FINDINGS: Normal 2-D Doppler and augmentation and compressibility throughout the lower extremity venous structures. Additional imaging through the proximal calf veins also reveals no thrombus. Limited evaluation of the greater saphenous vein is patent with no thrombus. CONCLUSIONS No DVT right lower extremity. Dr. Zully German DO (Electronically Signed) Final Date: 16 June 2021 07:58 Amended: 19 June 2021 09:03 C
== END 2021-06-16 07:09 | disposition home or self-care (01) ==
LOC: RAD 07:12
PROVIDERS: PCP Family Medicine; Visit Provider Emergency Medicine
DX: M79.89 Other specified soft tissue disorders (principal); L53.9 Erythematous condition, unspecified
CPT/HCPCS: 93971

== ENCOUNTER 2021-08-15 13:41 | Outpatient (CLI) | payer MEDICARE, MEDICAID, SELFPAY ==
--- NOTE | 2021-08-15 13:30 | USCV_ITS ---
Joseph Cho Age: 66 Gender: M : 1955 Exam Date: 08/15/2021 13:56 Ordering Phys: Maryellen Tony DO Technologist: SYDNEY Exam Location: [facility] [place] Indication: POOR WOUND HEALING Risk Factors: Previous Vascular Surgery: RIGHT LEFT BP: 123.0 / 73.00 BP: 134.0/ 75.00 0 0 Waveform Velocity (cm/s) Velocity (cm/s) Waveform Triphasic 83.7 Iliac Prox Triphasic 88.3 Iliac Mid Triphasic 110.0 Iliac Distal Triphasic 115.7 PROGRESSIVE CARE UNIT REGISTERED NURSE Triphasic 113.1 SFA Prox Triphasic 80.6 SFA Mid Triphasic 116.6 SFA Dist Triphasic 62.9 POP Triphasic 68.5 BRANCH COORDINATOR Triphasic 58.5 DPA 1.0 CRISTHIAN FINDINGS RT [id number] RT BRANCH COORDINATOR 126 Resting CRISTHIAN of 0.98 on the right side Normal arterial Doppler waveforms CONCLUSIONS No evidence of any significant arterial obstruction in the right lower extremity, based on the above findings. Dr Larry Dodson MD FACC (Electronically Signed) Final Date: 17 August 2021 08:33 S
== END 2021-08-15 13:42 | disposition home or self-care (01) ==
LOC: US 13:41
PROVIDERS: PCP Family Medicine; Visit Provider Family Medicine
DX: I73.9 Peripheral vascular disease, unspecified (principal)
CPT/HCPCS: 93926

== ENCOUNTER → 2021-09-05 08:29 | Outpatient (BNVA) | payer MEDICARE, MEDICAID, SELFPAY | PROVIDERS: PCP Family Medicine; Visit Provider Nurse Practitioner | DX: F33.2 Major depressive disorder, recurrent severe without psychotic features (principal); G31.84 Mild cognitive impairment of uncertain or unknown etiology | CPT/HCPCS: 99214 ==

== ENCOUNTER → 2021-12-19 15:22 | Outpatient (BNVA) | payer MEDICARE, MEDICAID, SELFPAY | PROVIDERS: PCP Family Medicine; Visit Provider Nurse Practitioner | DX: F33.2 Major depressive disorder, recurrent severe without psychotic features (principal); G31.84 Mild cognitive impairment of uncertain or unknown etiology | CPT/HCPCS: 99214 ==

== ENCOUNTER → 2022-01-30 14:26 | Outpatient (BNVA) | payer MEDICARE, MEDICAID, SELFPAY | PROVIDERS: PCP Family Medicine; Visit Provider Nurse Practitioner | DX: F33.2 Major depressive disorder, recurrent severe without psychotic features (principal); G31.84 Mild cognitive impairment of uncertain or unknown etiology | CPT/HCPCS: 99214 ==

== ENCOUNTER → 2022-06-20 09:35 | Outpatient (BNVA) | payer MEDICARE, MEDICAID, SELFPAY | PROVIDERS: PCP Family Medicine; Visit Provider Family Medicine | DX: Z51.81 Encounter for therapeutic drug level monitoring (principal); E78.5 Hyperlipidemia, unspecified; Z13.220 Encounter for screening for lipoid disorders | CPT/HCPCS: 80053; 80061; 85025 ==

== ENCOUNTER → 2024-05-20 09:45 | Outpatient (BNVA) | payer MEDICARE, MEDICAID, OTHER, SELFPAY | PROVIDERS: PCP Family Medicine; Visit Provider Podiatrist Foot & Ankle Surgery | DX: I73.9 Peripheral vascular disease, unspecified; L97.514 Non-pressure chronic ulcer of other part of right foot with necrosis of bone; M20.41 Other hammer toe(s) (acquired), right foot; M86.9 Osteomyelitis, unspecified; G62.1 Alcoholic polyneuropathy; M79.671 Pain in right foot | CPT/HCPCS: 11044; 28010; 73630; 87070; 87075; 87205; 99204 ==

== ENCOUNTER → 2024-05-25 09:51 | Outpatient (BNVA) | payer MEDICARE, MEDICAID, SELFPAY | PROVIDERS: PCP Family Medicine; Visit Provider Podiatrist Foot & Ankle Surgery | DX: I73.9 Peripheral vascular disease, unspecified; L97.514 Non-pressure chronic ulcer of other part of right foot with necrosis of bone; Z89.512 Acquired absence of left leg below knee; G62.1 Alcoholic polyneuropathy; M86.8X7 Other osteomyelitis, ankle and foot | CPT/HCPCS: 99214 ==

== ENCOUNTER 2024-05-27 10:23 | Day surgery (SDC) | payer MEDICARE, MEDICAID, SELFPAY ==
[2024-05-27] VITALS (8 sets, daily range): BP systolic 96–134; BP diastolic 57–84; PULSE 57–65; RESP 10–18; TEMP 36.1–36.3; O2SAT 92–96
--- NOTE | 2024-05-27 10:46 | P.ANESASSM_ITS ---
Pre-Anesthetic Assessment Height/Weight: Height 1.91 m Weight 92.079 kg Temp Pulse Resp BP Pulse Ox O2 Del Method 97 F L 65 18 134/84 96 Room Air 05/27/24 10:36 05/27/24 10:36 05/27/24 10:36 05/27/24 10:36 05/27/24 10:36 05/27/24 10:36 Preop Diagnosis: Osteomyelitis right third toe Operation Date: 05/27/24 12:00 Proposed Procedures p Amputation Toe/s Right third toe(Right) - Donal Olson DPM Familial anesthetic complications: None Was Beta Fara taken within 24 hours: N/A Was Clonidine taken within 24 hours: N/A Last intake: Intake Last Liquid Date 05/26/24 Last Liquid Time 09:00 Last Solid Date 05/26/24 Last Solid Time 22:00 Social Tobacco and No alcohol Former ETOH Exam alert, oriented x 3, clear to auscultation bilaterally and regular rate & rhythm Airway Mallampati: Class II Dentition: false CV/HEM Hypertension and Peripheral Vascular Disease Metabolic Hyperlipidemia Anesthetic Plan ASA status: 3 Anesthesia: MAC Risk of > 500 ml blood loss (7ml/kg in children): No Medications/Allergies Home Medications Medication Instructions Recorded Confirmed Last Taken Type oxycodone-acetaminophen 10 mg-325 1 tab PO Q6H PRN pain 7 days #28 05/10/20 05/27/24 05/26/24 Rx mg tablet tabs LEFT BELOW THE KNEE PROSTHESIS #1 ea 12/09/20 05/27/24 Unknown Rx gabapentin 300 mg capsule 900 mg (3 x 300 mg) PO BID #180 03/19/24 05/27/24 05/26/24 Rx caps zolpidem 10 mg tablet (Ambien) 10 mg PO .HS #30 tabs 03/19/24 05/27/24 05/25/24 Rx amlodipine 10 mg tablet 10 mg PO DAILY 05/26/24 05/27/24 05/26/24 History atorvastatin 20 mg tablet 20 mg PO BEDTIME 05/26/24 05/27/24 05/25/24 History lisinopril 40 mg tablet 40 mg PO BEDTIME 05/26/24 05/27/24 05/25/24 History metoprolol tartrate 50 mg tablet 50 mg PO BID 05/26/24 05/27/24 05/26/24 History venlafaxine 75 mg capsule,extended 225 mg PO BEDTIME 05/26/24 05/27/24 05/25/24 History release 24 hr Allergies Allergy/AdvReac Type Severity Reaction Status Date / Time No Known Allergies Allergy Verified 05/26/24 15:43 [facility] Anesthesia Medical History Psychiatric care Mild cognitive impairment, so stated Alcohol dependence, in remission Major depressive disorder, recurrent severe without psychotic features Essential (primary) hypertension GERD (gastroesophageal reflux disease) Peripheral vascular disease Alcohol abuse, in remission Surgical History History of left below knee amputation History of foot surgery Family History Other Cancer Social History Smoking and tobacco/nicotine status: current every day tobacco/nicotine user Alcohol intake: former Year of sobriety/quit date alcohol: 2011 Substance/Drug Use: never Data Anesthesia Cardiac Studies: No Data to Display
[2024-05-27] MEDS: sodium chloride 0.9% 1,000 ML 30 ML IV (10:59)
[2024-05-27 11:30] LABS: Anion Gap 16.6 (5-19); Blood Urea Nitrogen 24 mg/dL (8-23); Calcium 8.3 mg/dL (8.5-10.5); Carbon Dioxide 23 mmol/L (22-29); Chloride 105 mmol/L (98-107); Creatinine Clr Calc Pharmacy 95.9065; Glomerular Filtration Rate 83.7 mL/min (90-130); Glucose 110 mg/dL (65-115); Osmolality Calculated 295 mOsm/kg (285-295); Potassium 4.6 mmol/L (3.5-5.1); Sodium 140 mmol/L (136-145)
--- NOTE | 2024-05-27 12:03 | P.HPUD_ITS ---
Surgery/Procedure H&P Update DATE OF PROCEDURE: May 27, 2024 DATE H&P PERFORMED: 05/25/24 H&P UPDATE INFORMATION: I have reviewed H&P completed within last 30 days, I have examined patient prior to procedure, No changes to prior documentation and H&P is in [facility] [place] EMR on date indicated CHANGES TO PREVIOUS DOCUMENTATION: None PREOP DIAGNOSIS: Osteomyelitis right third toe PLANNED PROCEDURE: Operation Date: 05/27/24 12:00 Proposed Procedures p Amputation Toe/s Right third toe(Right) - Donal Olson DPM
[2024-05-27] MEDS: ceFAZolin 2,000 mg SDV 2000 MG IVP (12:08)
[2024-05-27] MEDS: BUPivacaine 0.5% INJ 30 mL INJECTION (12:37)
--- NOTE | 2024-05-27 12:45 | P.BOP_ITS ---
Date of Procedure: 12/13/23 Surgeon: Donal Olson DPM Learning And Development Assistant(s): BETO Procedure(s) performed: Right third toe amputation. Findings of the procedure(s): Clean margins Estimated blood loss: 5 mL Specimen(s) removed: Right third toe sent to pathology for permanent Post-operative diagnosis: Osteomyelitis right third toe Local david MAYES, supine, tourniquet time 11 minutes, no complications with anesthesia or surgery.
--- NOTE | 2024-05-27 12:46 | P.OP_ITS ---
Operative Report Date of procedure: May 27, 2024 Pre-op diagnosis: Acute osteomyelitis right third toe. L97.514 Post-op diagnosis: Acute osteomyelitis right third toe. L97.514 Procedure done: Right third toe amputation. CPT code 49516 Implants: 4-0 Vicryl, 4 nylon Pathology: Right third toe sent to pathology for permanent Surgeon: Donal Olson DPM Manager [employer] Sales: BETO Estimated blood loss: 5 11 IV fluids: 0 Urine output: 0 Complications: No complications Brief History: Wound was further devitalized right third toe, no improvement in erythema, patient wishing to proceed with amputation right third toe due to acute osteomyelitis without response to oral antibiotics and local wound care. I reviewed at length with the patient, the risks, potential complications, benefits, alternatives, expectations, and typical outcomes associated with the surgery. The risks and potential complications were explained in detail, including but not limited to infection, wound dehiscence or soft tissue complications, bleeding and hematoma, chronic edema, neuritis or nerve damage producing numbness or chronic pain, CRPS, failure to relieve pain or worsening pain, thick / painful / unsightly scar, limited motion / stiffness, malposition, delayed union, malunion, or nonunion, fracture, reaction to implants, anesthetic complications, venous thromboembolism, and deformity recurrence. I discussed the notion of no regrets with the patient as it pertains to complications and outcomes. The patient seemed to understand the nature of the proposed care and required convalescence. They asked appropriate questions, answered to their satisfaction. They are aware no guarantees can be made as to a satisfactory outcome and they understand there may be other possible unforeseen complications or outcomes not listed here that will be treated accordingly if they arise. There were no written or implied guarantees given to the patient. They gave informed consent to proceed. Procedure: Under mild sedation patient was brought to the operating room and remained on the gurney in supine position. A timeout was performed. Anesthesia was then administered by the anesthesia service. Local anesthesia injected by myself consisting of 20 cc of one-to-one mixture 1% lidocaine and 0.5% Marcaine plain in a right third ray block fashion. Well-padded pneumatic tourniquet applied to the right ankle. Right lower extremity was then scrubbed, prepped and draped utilizing normal aseptic technique. Right foot was elevated and tourniquet inflated to 250 mmHg. Attention was directed to devitalized toe with exposed bone right third toe where a full-thickness incision was performed with a #15 blade down to bone this was a vertical semielliptical converging incision in the right third toe was disarticulated sharply through the third metatarsal phalangeal joint and passed from the operative field to be sent to pathology for gross anatomical review. The incision was irrigated with copious amounts of sterile saline solution. All bleeders were ligated and cauterized as necessary. Extensor and flexor tendons were transected at their most proximal margin. Viable skin margins were appreciated at the amputation site and the head of the third metatarsal was visualized and appeared to have normal appearance and density. After further irrigation the incision was closed in a layered fashion, subcutaneous tissue closed with 4-0 Vicryl and skin with 4-0 nylon. Incision was dressed with Adaptic, sterile 4 x 4, Kerlix and Alban wrap followed by application of a postop shoe to the right lower extremity. Tourniquet was deflated and a prompt hyperemic response was noted to the forefoot of the right foot. Patient tolerated the procedure and anesthesia well and was transferred to the PACU with vital signs stable and vascular status intact. Following a period of postoperative monitoring he will be discharged home without home care instructions, schedule follow-up in my cell phone to contact me with any postoperative questions or concerns.
--- NOTE | 2024-05-27 13:45 | ANE.PACU2 ---
Inpatient post-anesthesia follow up: Airway intact: Yes Vital signs: Temperature 97.2 F Pulse Rate 58 Respiratory Rate 16 Blood Pressure 117/68 Pulse Oximetry 94 Oxygen Delivery Me thod Room Air Oxygen Flow Rate Fraction of Inspir ed Oxygen Hydration adequate: Yes Nausea and vomiting: No Pain level: 1 Mental status: Baseline
== END 2024-05-27 13:45 | disposition home or self-care (01) ==
PROVIDERS: Student in an Organized Health Care Education/Training Program; PCP Family Medicine; Visit Provider Podiatrist Foot & Ankle Surgery
PROC: (CPT 28820; principal; 2024-05-27 12:00)
DX: L97.514 Non-pressure chronic ulcer of other part of right foot with necrosis of bone (principal); I10 Essential (primary) hypertension; E78.5 Hyperlipidemia, unspecified; K21.9 Gastro-esophageal reflux disease without esophagitis; F17.200 Nicotine dependence, unspecified, uncomplicated; M86.9 Osteomyelitis, unspecified; I73.9 Peripheral vascular disease, unspecified; M20.41 Other hammer toe(s) (acquired), right foot
CPT/HCPCS: 28820; 36415; 80048; 88305; 88311; J0690; J2704; J3010; J3490; J7030

== ENCOUNTER → 2024-06-04 08:51 | Outpatient (BNVA) | payer MEDICARE, MEDICAID, SELFPAY | PROVIDERS: PCP Family Medicine; Visit Provider Podiatrist Foot & Ankle Surgery | DX: I73.9 Peripheral vascular disease, unspecified; Z89.512 Acquired absence of left leg below knee; G62.1 Alcoholic polyneuropathy; M86.8X7 Other osteomyelitis, ankle and foot | CPT/HCPCS: 99213 ==

== ENCOUNTER → 2024-06-11 15:02 | Outpatient (BNVA) | payer MEDICARE, MEDICAID, SELFPAY | PROVIDERS: PCP Family Medicine; Visit Provider Podiatrist Foot & Ankle Surgery | DX: Z89.512 Acquired absence of left leg below knee (principal); I73.9 Peripheral vascular disease, unspecified; G62.1 Alcoholic polyneuropathy; M86.8X7 Other osteomyelitis, ankle and foot | CPT/HCPCS: 99213 ==

== ENCOUNTER → 2024-12-22 11:10 | Outpatient (BNVA) | payer MEDICARE, MEDICAID, SELFPAY | PROVIDERS: PCP Family Medicine; Visit Provider Podiatrist Foot & Ankle Surgery | DX: M79.671 Pain in right foot (principal); L97.513 Non-pressure chronic ulcer of other part of right foot with necrosis of muscle; M20.41 Other hammer toe(s) (acquired), right foot | CPT/HCPCS: 11043; 73630; 87070; 87075; 87205; 99214 ==

== ENCOUNTER → 2024-12-28 09:07 | Outpatient (BNVA) | payer MEDICARE, MEDICAID, SELFPAY | PROVIDERS: PCP Family Medicine; Visit Provider Podiatrist Foot & Ankle Surgery | DX: M20.41 Other hammer toe(s) (acquired), right foot (principal); L97.513 Non-pressure chronic ulcer of other part of right foot with necrosis of muscle; G62.1 Alcoholic polyneuropathy; I73.9 Peripheral vascular disease, unspecified | CPT/HCPCS: 28010; 28011; 99214 ==

== ENCOUNTER → 2024-12-30 09:19 | Outpatient (BNVA) | payer MEDICARE, MEDICAID, SELFPAY | PROVIDERS: PCP Family Medicine; Visit Provider Podiatrist Foot & Ankle Surgery | DX: I73.9 Peripheral vascular disease, unspecified (principal); L97.513 Non-pressure chronic ulcer of other part of right foot with necrosis of muscle; G62.1 Alcoholic polyneuropathy; Z89.512 Acquired absence of left leg below knee | CPT/HCPCS: 99213 ==

== ENCOUNTER → 2025-02-09 14:53 | Outpatient (BNVA) | payer MEDICARE, MEDICAID, SELFPAY | PROVIDERS: PCP Family Medicine; Visit Provider Podiatrist Foot & Ankle Surgery | DX: Z89.512 Acquired absence of left leg below knee (principal); G62.1 Alcoholic polyneuropathy; I73.9 Peripheral vascular disease, unspecified | CPT/HCPCS: 99213 ==

== ENCOUNTER 2025-07-20 10:26 | Outpatient (CLI) | payer MEDICARE, MEDICAID, OTHER, SELFPAY ==
--- NOTE | 2025-07-20 10:32 | XRR_ITS ---
PROCEDURE INFORMATION: Exam: XR Lumbosacral Spine Exam date and time: 07/20/2025 10:39 AM Age: 69 years old Clinical indication: Low back pain; Bilat leg pain ( right worse) and numbness x5 years, HX of lumbar vertebrae dislocation when adolescent; Additional info: Spondylosis of lumbosacral region w/o myelopathy TECHNIQUE: Imaging protocol: Radiologic exam of the lumbosacral spine. Views: 6 or more views. Including flexion and extension views. COMPARISON: No relevant prior studies available. FINDINGS: Bones/joints: There is osteopenia and osteoarthritis. No acute fracture. Normal alignment. Soft tissues: The aorta is calcified without aneurysm.. XR/XR lumbar spine 6V w f/e [id number] IMPRESSION: 1. Osteopenia and osteoarthritis. 2. Calcified abdominal aorta 3. Otherwise No acute findings.
== END 2025-07-20 10:27 | disposition home or self-care (01) ==
LOC: RAD 10:29
PROVIDERS: PCP Family Medicine; Visit Provider Student in an Organized Health Care Education/Training Program
DX: M47.817 Spondylosis without myelopathy or radiculopathy, lumbosacral region (principal); I70.0 Atherosclerosis of aorta; M85.88 Other specified disorders of bone density and structure, other site; M47.896 Other spondylosis, lumbar region
CPT/HCPCS: 72114

== ENCOUNTER 2025-08-16 15:32 | Outpatient (CLI) | payer MEDICARE, MEDICAID, SELFPAY ==
--- NOTE | 2025-08-16 15:30 | XR_ITS ---
WS: [id number] SCREENING DEXA SCAN [facility] CLINICAL INFORMATION: Osteopenia on xray COMPARISON: None. FINDINGS: The L1-L4 bone mineral density measures 1.419 g/cm2. This corresponds to a T score score of 1.7 and Z score of 1.9. Left femoral neck bone mineral density measures 1.038 g/cm2. This corresponds to a T score of -0.4 and Z score of 0.1. Right femoral neck bone mineral density measures 1.162 g/cm2. This corresponds to a T score 0.4of and Z score of 1.0. Mean femoral neck bone mineral density measures 1.100 g/cm2. This corresponds to a T score of 0.0 and Z score of 0.6. XR/XR DEXA axial skeleton* 13147 IMPRESSION: Normal bone mineralization lumbar spine and femoral necks.. Patient's FRAX calculated 10 year probability for major osteoporotic fracture i s 13.2% and osteoporotic hip fracture is 4.6%.
== END 2025-08-16 15:33 | disposition home or self-care (01) ==
LOC: RAD 15:32
PROVIDERS: PCP Family Medicine; Visit Provider Family Medicine
DX: Z13.820 Encounter for screening for osteoporosis (principal); M85.88 Other specified disorders of bone density and structure, other site
CPT/HCPCS: 77080

== ENCOUNTER → 2025-08-24 09:54 | Outpatient (BNVA) | payer MEDICARE, MEDICAID, SELFPAY | PROVIDERS: PCP Family Medicine; Visit Provider Family Medicine | DX: E55.9 Vitamin D deficiency, unspecified (principal); Z00.00 Encounter for general adult medical examination without abnormal findings; Z51.81 Encounter for therapeutic drug level monitoring; R73.09 Other abnormal glucose; Z13.6 Encounter for screening for cardiovascular disorders; R35.0 Frequency of micturition | CPT/HCPCS: 80053; 80061; 82306; 83036; 84153; 85025 ==